=== PATIENT | female | born 1975 | race Caucasian/White ===

== ENCOUNTER → 2022-06-29 | Outpatient (CLI) | payer BC ==
[~2022-06-29] MED LIST: CYANOCOBAL1000 MCG/1 INJ; FEOSOL325 MG PO; LEVOTHYROXINE50 MCG PO; PROTONIX40 MG PO; SUCRALFATE1 GM/10 ML PO; SYNTHROID75 MCG PO; VITAMIN D31000 UNI1 PO
== END ==
LOC: US 09:24
DX: E04.9 Nontoxic goiter, unspecified (principal)
CPT/HCPCS: 76536